=== PATIENT | female | born 1980 | race Caucasian/White ===

== ENCOUNTER 2016-07-13 12:57 | Emergency (ER) | payer OTHER ==
[~2016-07-13] VITALS: Ht 165.1 cm; Wt 65.9 kg
[2016-07-13 13:13] VITALS: BP 113/79; PULSE 66; RESP 18; O2SAT 99
--- NOTE | 2016-07-13 13:53 | ED.REPORT ---
HPI-Facial Injury Date of Service Jul 13, 2016 ED Provider: Dr. Singh Pt is a healthy 36 y/o female presenting to the ED c/o left outer ear pain secondary to sebaceous cyst behind the left ear for the past few days. She has had similar episodes previously many times and has been prescribed antibiotics without relief. These are normally treated successfully by drainage. She has no other complaints other than pain. She denies fever, chills, vomiting, hearing loss. Nursing Notes Stated Complaint: LEFT EAR CYST Chief Complaint: Skin Rash/Abscess Nursing Notes Reviewed: Yes Allergies: Coded Allergies: No Known Allergies (Verified , 07/13/16) Scheduled Sulfamethoxazole/Trimeth 800-160 mg (Bactrim DS) 1 Each Tablet 1 TABLET PO BID Scheduled PRN Naproxen (Naproxen) 500 Mg Tab 500 MG PO BID PRN PRN For Pain General Time Seen by Provider: 13:59 Chief Complaint Other (cyst) Hx Obtained From: Patient Arrived By: Walk-in Onset Occurred: 3 days ago Symptom Duration: Since onset Progression Since Onset: Gradually worsening Location: : Ear left Quality: Painful Severity: Current: Moderate Severity: Maximum: Moderate Recent Healthcare: Previous diagnosis Similar Sx Previous: Yes Past Medical History Past Medical History Recurrent sebacious cysts posterior ears Past Surgical History Reports: Tubal ligation Smoking History Current Every Day Smoker Social History Alcohol Use: "Social" Drug Use: Denies drug use Other Social History: Good social support Occupation lives with boyfriend, works as a point of sale associate Ambulatory Status Independent Review of Systems Constitutional: Denies: Chills, Fever Ears / Nose / Throat: Reports: Earache left, Denies: Hearing loss left Skin: Reports Rash, Denies Swelling Complete sys rev & neg: except as marked. Physical Exam Initial Vital Signs Vital Signs (First) Date Time Temp Pulse Resp B/P Pulse Ox O2 Delivery O2 Flow Rate FiO2 07/13/16 13:13 36.6 66 18 113/79 99 Room Air Initial VS: Reviewed, Vital signs normal Respiratory: No respiratory distress Cardiovascular: Intact distal pulses Abdomen / GI: Soft, No distention Extremities: Vascular intact, Neuro intact, No swelling, No tenderness Skin: Warm, Dry, No cyanosis Psychiatric: Mood/affect normal, Behavior normal, Normal thought content Head / Eyes: Atraumatic, Normocephalic ENT: Atraumatic, Airway patent, Mucous membranes moist Left ear: 1 cm cyst on posterior end of oracle, red and swollen Neck: Atraumatic, Supple, No meningismus, Full range of motion Neurologic: Oriented X3, Speech NL, No motor deficits, No sensory deficits General/Constitutional: Awake, Alert, No acute distress, Well appearing, Cooperative, Not toxic appearing Procedures Incision & Drainage Abscess I & D Abscess: I&D of cyst Time: 14:38 Procedure Performed by: ED physician Consent / Setup / Site Prep: Consent from patient, Time-out performed, Hand hygiene observed, Stand sterile technique Location of Abscess: Left ear: 1 cm cyst on posterior end of oracle Skin Preparation Agent: Shurclens, Hibiclens - Chlorhexidine, Normal saline Local Anesthesia: Lidocaine w epi 1% Pus Drained: Large, Purulent discharge Irrigation: Copious Post-Procedure / Complications: Packing placed, No complications, Condition improved, Tolerated procedure well, Patient stable Re-Eval/Medical Decision Med Decision/Clinical Course Med Decision/Clinical Course: Simple abscess behind the left ear, incised and drained at the bedside, Bactrim and naproxen prescribed. Re-Evaluation/Progress : Time of Eval: 14:42 Re-Evaluation/Progress Note: Pt rechecked. Procedure performed without complications. Informed pt of plan for treatment. Pt understands and agrees with plan for treatment. F/U and RTER warnings given. All questions addressed. Counseled Regarding: Diagnosis, Need for follow-up, When/why to return to ED Discharge & Departure Impression: Primary Impression: Sebaceous cyst of ear Disposition: Home Discharge Condition All VS Reviewed: Yes Condition: Stable Additional Instructions: The cyst was incised and drained today. Wound packing was placed. Keep the area clean and dry. You need to have the wound checked in 48 hours by a medical profession. Either go to your primary care doctor, urgent care, or back to the ER. Return to the emergency department if you develop redness, increasing pain, fever, vomiting, yellow discharge, swelling, or other concerning symptoms. Referrals: Eric Vincent MD (PCP) Scribe Attestation Portions of this note were transcribed by Saulo Contreras. I, Dr. Singh personally performed the history, physical exam and medical decision-making; I reviewed and confirmed the accuracy of the information in the transcribed note. Signed by Raiza Castillo, 07/13/16 - [id number] copies to: Eric Vincent MD, Timothy S DO Jul 13, 2016 13:52 SAULO CONTRERAS Jul 13, 2016 14:04
[2016-07-13] MEDS ORDERED: Lidocaine 1%-Epi 1:100,000 50 mL Inj NERVEBLOCK ONE (14:05)
[2016-07-13] MEDS ORDERED: Lidocaine 1%-Epi 1:100,000 20 mL Inj ONE (14:36)
[2016-07-13] MEDS ORDERED: SULF1TAB7 PO (15:37)
[2016-07-13] MEDS ORDERED: NPR500T PO (15:56)
[2016-07-13 16:06] VITALS: BP 110/76; PULSE 68; RESP 16; O2SAT 98
== END 2016-07-13 16:07 | disposition home or self-care (01) ==
LOC: SED 12:57
DX: L72.3 Sebaceous cyst (principal); F17.200 Nicotine dependence, unspecified, uncomplicated